=== PATIENT | male | born 1985 | race Caucasian/White ===

== ENCOUNTER 2017-03-15 21:35 | Emergency (ER) | payer SELFPAY ==
[~2017-03-15] VITALS: Ht 195.6 cm; Wt 137.9 kg
[2017-03-15 21:35] VITALS: BP 136/100; PULSE 92; RESP 18; TEMP 98.9; O2SAT 100
[~2017-03-15 21:35] MED LIST: ANTIDEPRESSANT PO; MUSCLE RELAXER PO; NEXI20CA PO; Z.0.NO CURRENT MEDS; [UNRECOGNIZED DRUG - CODE] PO
[2017-03-15] MEDS ORDERED: ZANT150T2 PO (21:56)
[2017-03-15] MEDS ORDERED: CYCL1TAB29 PO (21:57)
--- NOTE | 2017-03-15 22:00 | PD ---
HPI Chief Complaint: Respiratory Symptoms Time Seen by Provider: 21:47 Travel History International Travel<30 days: No Contact w/Intl Traveler<30days: Yes Name of Country Traveled to: doesnt know what country but boss travels internationally Traveled to known affect area: No History of Present Illness HPI 31-year-old male complains of headache, earache, sore throat, persistent cough with bloody sputum, nausea and diarrhea. Patient states that the symptoms started a week ago. Patient noticed some blood in the sputum for the past 3 days. Patient states that headache aching headache diffuse over the head. Patient denies any visual change. Patient denies any neck pain. Patient has anterior chest wall with coughing. Patient denies abdominal pain. Patient denies any dysuria or frequency. Patient feeling hot and cold at home. PFSH Past Medical History Depression: Yes Diminished Hearing: No GERD: Yes Immunizations Current: Yes Social History Alcohol Use: Yes (RARELY) Tobacco Use: No Substance Use: Yes (DAILY MARIJUANA) Allergies-Medications (Allergen,Severity, Reaction): Coded Allergies: No Known Allergies (Unverified , 03/15/17) Reported Meds & Prescriptions Reported Meds & Active Scripts Active Reported Flexeril (Cyclobenzaprine HCl) 10 Mg Tab 10 Mg PO TID Zantac (Ranitidine HCl) 150 Mg Tab 150 Mg PO BID Nexium (Esomeprazole DR) 20 Mg Capdr 20 Mg PO DAILY Review of Systems General / Constitutional: No: Fever Eyes: No: Visual changes HENT: Positive: Headaches, Sore Throat, Earache Cardiovascular: No: Chest Pain or Discomfort Respiratory: Positive: Cough, Hemoptysis, No: Shortness of Breath Gastrointestinal: Positive: Nausea, Diarrhea, No: Abdominal Pain Genitourinary: No: Dysuria Musculoskeletal: No: Pain Skin: No Rash Neurologic: No: Weakness Psychiatric: No: Depression Endocrine: No: Polydipsia Hematologic/Lymphatic: No: Easy Bruising Physical Exam Narrative GENERAL: Well-nourished, well-developed patient. SKIN: Focused skin assessment warm/dry. HEAD: Normocephalic. EYES: No scleral icterus. No injection or drainage. TM: Clear. Throat: Nonerythematous. NECK: Supple, trachea midline. No JVD or lymphadenopathy. No meningismus CARDIOVASCULAR: Regular rate and rhythm without murmurs, gallops, or rubs. RESPIRATORY: Breath sounds equal bilaterally. No accessory muscle use. GASTROINTESTINAL: Abdomen soft, non-tender, nondistended. MUSCULOSKELETAL: No cyanosis, or edema. BACK: Nontender without obvious deformity. No CVA tenderness. Neurologic exam normal. Data Data Last Documented VS Vital Signs Date Time Temp Pulse Resp B/P Pulse Ox O2 Delivery O2 Flow Rate FiO2 03/15/17 21:50 100 Room Air 03/15/17 21:35 98.9 92 18 136/100 Orders Influenzae A/B Antigen (03/15/17 21:54) Chest, Pa & Lat (03/15/17 21:54) MDM Medical Decision Making Medical Screen Exam Complete: Yes Emergency Medical Condition: Yes Interpretation(s) Last Impressions Chest X-Ray 03/15/172153 Signed Impressions: Service Date/Time: Friday, March 15, 2017 21:56 - CONCLUSION: No acute cardiopulmonary disease. Anyi Rico MD 22:36 PM. Influenza AB antigen negative. Differential Diagnosis Differential diagnosis including viral syndrome, otitis media, pharyngitis, bronchitis, pneumonia, gastroenteritis, electrolyte abnormality, dehydration. Narrative Course 31-year-old male with headache, earache, sore throat, coughing with bloody sputum, nausea and diarrhea. Diagnosis Primary Impression: Bronchitis Additional Impression: Viral syndrome Patient Instructions: General Instructions Additional Instructions: Take medications as directed. Tylenol and ibuprofen for fever aching pain. Follow-up with personal physician. Return if persistent problem or worse. Med/Other Pt SpecificInfo: Prescription(s) given Scripts [Phenerg W Codein] No Conflict Check10 Ml PO Q6HR #120 Prov:Kin Houser MD 03/15/17 Azithromycin (Zithromax Z-Ronaldo)250 Mg [id number] Mg PO DIRECTED #1 DSPK 500 MG (2 tabs) day 1, then 1 tab days 2-5. Prov:Kin Houser MD 03/15/17 Disposition: 01 DISCHARGE HOME Condition: Stable Kin Houser MD Mar 15, 2017 22:00
--- NOTE | 2017-03-15 22:20 | RADHPO ---
EXAM DATE/TIME: 03/15/2017 21:56 [facility] COMPARISON: No previous studies available for comparison. INDICATIONS : Cough and chest pain. Patient states he has been coughing up blood for three days. MEDICAL HISTORY : Former smoker. SURGICAL HISTORY : None. ENCOUNTER: Initial ACUITY: 3 days PAIN SCORE: 4/10 LOCATION: Bilateral chest FINDINGS: The lungs are clear without infiltrate, nodule, or mass. There is no appreciable pleural effusion fo r technique. Heart and mediastinum are unremarkable. CONCLUSION: No acute cardiopulmonary disease. Anyi Rico MD on March 15, 2017 at 22:17 Board Certified Radiologist. This report was verified electronically.
[2017-03-15] MEDS ORDERED: [UNRECOGNIZED DRUG - OTHER] PO (22:40)
[2017-03-15] MEDS ORDERED: ZITHTAB PO (22:40)
[2017-03-15 22:44] VITALS: BP 140/94; TEMP 98.8
== END 2017-03-15 22:53 | disposition home or self-care (01) ==
LOC: PHED 21:35
DX: J40 Bronchitis, not specified as acute or chronic (principal); B34.9 Viral infection, unspecified
CPT/HCPCS: 71020; 87804; 99284

== ENCOUNTER 2017-07-07 22:05 | Emergency (ER) | payer SELFPAY ==
[~2017-07-07] VITALS: Ht 195.6 cm; Wt 125.0 kg
[~2017-07-07 22:05] MED LIST changes: -ANTIDEPRESSANT PO; +CYCL1TAB29 PO; -MUSCLE RELAXER PO; -Z.0.NO CURRENT MEDS; +ZANT150T2 PO; +ZITHTAB PO; -[UNRECOGNIZED DRUG - CODE] PO; +[UNRECOGNIZED DRUG - OTHER] PO
[2017-07-07 22:06] VITALS: BP 186/111; PULSE 93; RESP 16; TEMP 98.4; O2SAT 100
--- NOTE | 2017-07-07 22:32 | PD ---
Physical Exam Date Seen by Provider: Jul 07, 2017 Time Seen by Provider: 22:28 Narrative 31 y/o male here for Psychiatric Exam for suicidal ideation. Police told him to come, but was not Wiley Acted. Currently denies suicidal ideation or specific plan. Patient was brought in by a friend so he wouldn't be Wiley Acted. Hx. Colitis. Vital Signs reviewed. Patient is Stable and awaiting Bed Placement. Data Data Last Documented VS Vital Signs Date Time Temp Pulse Resp B/P (MAP) Pulse Ox O2 Delivery O2 Flow Rate FiO2 07/07/17 22:06 98.4 93 16 186/111 (136) 100 MDM Medical Record Reviewed: Yes Supervised Visit with JONAH: Yes Condition: Stable Favio Concepcion Jul 07, 2017 22:32
--- NOTE | 2017-07-07 23:24 | PD ---
HPI Chief Complaint: Psychiatric Symptoms Time Seen by Provider: 23:23 Travel History International Travel<30 days: No Contact w/Intl Traveler<30days: No Traveled to known affect area: No History of Present Illness HPI 31-year-old male reports depressed mood lately as well as his has been cheating on him. He denies any actual plan to hurt himself nor has he history of self-harm or diagnosis of psychiatric disease. He smokes marijuana daily however denies alcohol abuse or drug abuse otherwise. He reports that social support network to be intact. 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 Location neuropsychiatric. Severity moderate. PFSH Past Medical History Depression: Yes Diminished Hearing: No GERD: Yes (Colitis) Immunizations Current: Yes Social History Alcohol Use: Yes (RARELY) Tobacco Use: No Substance Use: Yes (DAILY MARIJUANA) Allergies-Medications (Allergen,Severity, Reaction): Coded Allergies: No Known Allergies (Unverified , 07/07/17) Reported Meds & Prescriptions Reported Meds & Active Scripts Active Paxil (Paroxetine HCl) 10 Mg Tab 10 Mg PO DAILY [Phenerg W Codein] 10 Ml PO Q6HR Zithromax Z-Ronaldo (Azithromycin) 250 Mg Dspk 250 Mg PO DIRECTED 500 MG (2 tabs) day 1, then 1 tab days 2-5. Reported Flexeril (Cyclobenzaprine HCl) 10 Mg Tab 10 Mg PO TID Zantac (Ranitidine HCl) 150 Mg Tab 150 Mg PO BID Nexium (Esomeprazole DR) 20 Mg Capdr 20 Mg PO DAILY Review of Systems Except as stated in HPI: all other systems reviewed are Neg Physical Exam Narrative GENERAL: 31-year-old male well-nourished well-developed pleasant SKIN: Warm and dry. HEAD: Atraumatic. Normocephalic. EYES: Pupils equal and round. No scleral icterus. No injection or drainage. ENT: No nasal bleeding or discharge. Mucous membranes pink and moist. NECK: Trachea midline. No JVD. CARDIOVASCULAR: Regular rate and rhythm. RESPIRATORY: No accessory muscle use. Clear to auscultation. Breath sounds equal bilaterally. GASTROINTESTINAL: Abdomen soft, non-tender, nondistended. Hepatic and splenic margins not palpable. MUSCULOSKELETAL: Extremities without clubbing, cyanosis, or edema. No obvious deformities. NEUROLOGICAL: Awake and alert. No obvious cranial nerve deficits. Motor grossly within normal limits. Five out of 5 muscle strength in the arms and legs. Normal speech. PSYCHIATRIC: Interactive. Normal affect. Reports depressed mood however has no suicidal plan. He has no homicidal ideation. Data Data Last Documented VS Vital Signs Date Time Temp Pulse Resp B/P (MAP) Pulse Ox O2 Delivery O2 Flow Rate FiO2 07/07/17 22:06 98.4 93 16 186/111 (136) 100 Vital signs reviewed Orders Orders Complete Blood Count With Diff (07/07/17 22:32) Comprehensive Metabolic Panel (07/07/17 22:32) Psych Screen (07/07/17 22:32) Drug Screen, Random Urine (07/07/17 22:32) MDM Medical Decision Making Medical Screen Exam Complete: Yes Emergency Medical Condition: Yes Differential Diagnosis Depressed mood, major depression, depression or related to marijuana abuse, adjustment reaction Narrative Course Overall the patient is considered very low probability for self-harm. He would like to leave the ER so he can work tomorrow. He is outside of the black box risk for suicidality secondary to Paxil use and seems amenable to a trial of it for his depressed mood. He has verbalized understanding of return precautions to the ER and I would consider his intent to be sincere and for him to be a reliable patient. Diagnosis Primary Impression: Depressed mood Referrals: Psychiatrist Additional Instructions: You have a choice when it comes to health care, and we are glad that you chose [facility]. Hopefully, we have met your expectations on today's visit. You are welcome to return to [facility] at any time, as we are committed to meeting the health care needs of our community. Med/Other Pt SpecificInfo: Prescription(s) given Scripts Paroxetine (Paxil) 10 Mg Tab 10 MG PO DAILY, #30 TAB 0 Refills Prov: Hunter Rosario MD 07/07/17 Disposition: 01 DISCHARGE HOME Condition: Stable Hunter Rosario MD Jul 07, 2017 23:24
[2017-07-07] MEDS ORDERED: PAXI10TA2 PO (23:26)
[2017-07-09] MEDS ORDERED: PROZ20CA11 PO (15:35)
== END 2017-07-08 00:07 | disposition home or self-care (01) ==
LOC: NEPD 23:51
DX: F32.9 Major depressive disorder, single episode, unspecified (principal); K21.9 Gastro-esophageal reflux disease without esophagitis
CPT/HCPCS: 99283

== ENCOUNTER 2017-07-08 16:01 | Emergency (ER) | payer SELFPAY ==
[~2017-07-08] VITALS: Ht 193 cm; Wt 129.5 kg
[2017-07-08 16:01] VITALS: BP 188/92; PULSE 77; RESP 16; TEMP 98.5; O2SAT 98
[~2017-07-08 16:01] MED LIST changes: +PAXI10TA2 PO
[2017-07-08 16:44] LABS: AUTOMATED NEUTROPHIL # 5.7 TH/MM3 (1.8-7.7); BASOPHIL % 0.4 % (0.0-2.0); EOSINOPHIL # 0.3 TH/MM3 (0-0.4); EOSINOPHIL % 4.1 % (0.0-4.0); HEMATOCRIT 40.8 % (39.0-51.0); HEMO FLAGS DIFF FINAL; LYMPH % 13.6 % (9.0-44.0); LYMPHOCYTE # 1.1 TH/MM3 (1.0-4.8); MEAN CELL VOLUME 90.4 FL (80.0-100.0); MEAN CORPUSCULAR HEMOGLOBIN 30.8 PG (27.0-34.0); NEUT % 72.9 % (16.0-70.0); PLATELET COUNT 261 TH/MM3 (150-450); RED BLOOD COUNT 4.51 MIL/MM3 (4.50-5.90); RED CELL DISTRIBUTION WIDTH 12.8 % (11.6-17.2); WHITE BLOOD COUNT 7.8 TH/MM3 (4.0-11.0)
[2017-07-08 17:07] LABS: ALT (GPT) 27 U/L (12-78); ANION GAP 6 MEQ/L (5-15); AST (GOT) 20 U/L (15-37); BICARBONATE 28.9 MEQ/L (21.0-32.0); BLOOD UREA NITROGEN 12 MG/DL (7-18); CHLORIDE 109 MEQ/L (98-107); GLOMERULAR FILTRATION RATE 74 ML/MIN (>89); POTASSIUM 4.1 MEQ/L (3.5-5.1); SODIUM (NA) 144 MEQ/L (136-145)
[2017-07-08 17:09] LABS: ALKALINE PHOSPHATASE 68 U/L (45-117); TOTAL BILIRUBIN ADULT 0.9 MG/DL (0.2-1.0)
--- NOTE | 2017-07-08 18:01 | PD ---
HPI Chief Complaint: Suicide Ideation/Attempt Time Seen by Provider: 17:31 Travel History International Travel<30 days: No Contact w/Intl Traveler<30days: No Traveled to known affect area: No History of Present Illness HPI 31-year-old male presents to emergency Department voluntarily for psychiatric evaluation for depression and suicidal thoughts. He says his home situation is overwhelmingly horrible and it is causing him to be depressed and wants to commit suicide. He does not have a plan. He does state that if he had a gun in the house he probably wouldn't be alive today, therefore he does not keep a gun in the house. Reports hearing voices and seeing things out of the side of his eyes. Reports history of depression and suicidal thoughts. History of suicidal attempt when he was younger. Denies homicidal ideations. Admits to recently using cocaine. Reports marijuana use. Denies tobacco use. Has no emergent medical complaints at this time. No known allergies. No other modifying factors or associated signs and symptoms. PFSH Past Medical History Depression: Yes Diminished Hearing: No Gastrointestinal Disorders: Yes (COLITS) GERD: Yes (Colitis) Immunizations Current: Yes Social History Alcohol Use: Yes (RARELY) Tobacco Use: No Substance Use: Yes (DAILY MARIJUANA) Allergies-Medications (Allergen,Severity, Reaction): Coded Allergies: No Known Allergies (Unverified , 07/08/17) Reported Meds & Prescriptions Reported Meds & Active Scripts Active Paxil (Paroxetine HCl) 10 Mg Tab 10 Mg PO DAILY [Phenerg W Codein] 10 Ml PO Q6HR Zithromax Z-Ronaldo (Azithromycin) 250 Mg Dspk 250 Mg PO DIRECTED 500 MG (2 tabs) day 1, then 1 tab days 2-5. Reported Flexeril (Cyclobenzaprine HCl) 10 Mg Tab 10 Mg PO TID Zantac (Ranitidine HCl) 150 Mg Tab 150 Mg PO BID Nexium (Esomeprazole DR) 20 Mg Capdr 20 Mg PO DAILY Review of Systems Except as stated in HPI: all other systems reviewed are Neg Physical Exam Narrative GENERAL: Well-nourished, well-developed male patient, in no acute distress SKIN: Warm and dry. HEAD: Atraumatic. Normocephalic. EYES: Pupils equal and round. ENT: Mucosa pink and moist. NECK: Supple. Trachea midline. CARDIOVASCULAR: Regular rate and rhythm. No murmur appreciated. RESPIRATORY: No accessory muscle use. Clear to auscultation. Breath sounds equal bilaterally. GASTROINTESTINAL: Abdomen soft, non-tender, nondistended. Hepatic and splenic margins not palpable. Bowel sounds are active 4 quadrants. MUSCULOSKELETAL: No obvious deformities. No clubbing. No cyanosis. No edema. NEUROLOGICAL: Awake and alert. Oriented 3. No obvious cranial nerve deficits. Motor grossly within normal limits. Normal speech. Moves all extremities. 5/5 strength to all extremities. PSYCHIATRIC: No delusional thought processes. No hallucinations. Data Data Last Documented VS Vital Signs Date Time Temp Pulse Resp B/P (MAP) Pulse Ox O2 Delivery O2 Flow Rate FiO2 07/08/17 16:01 98.5 77 16 188/92 (124) 98 Room Air Orders Orders Complete Blood Count With Diff (07/08/17 16:09) Comprehensive Metabolic Panel (07/08/17 16:09) Psych Screen (07/08/17 16:09) Drug Screen, Random Urine (07/08/17 16:09) Labs Laboratory Tests Test 07/08/17 16:17 White Blood Count 7.8 TH/MM3 Red Blood Count 4.51 MIL/MM3 Hemoglobin 13.9 GM/DL Hematocrit 40.8 % Mean Corpuscular Volume 90.4 FL Mean Corpuscular Hemoglobin 30.8 PG Mean Corpuscular Hemoglobin Concent 34.0 % Red Cell Distribution Width 12.8 % Platelet Count 261 TH/MM3 Mean Platelet Volume 8.5 FL Neutrophils (%) (Auto) 72.9 % Lymphocytes (%) (Auto) 13.6 % Monocytes (%) (Auto) 9.0 % Eosinophils (%) (Auto) 4.1 % Basophils (%) (Auto) 0.4 % Neutrophils # (Auto) 5.7 TH/MM3 Lymphocytes # (Auto) 1.1 TH/MM3 Monocytes # (Auto) 0.7 TH/MM3 Eosinophils # (Auto) 0.3 TH/MM3 Basophils # (Auto) 0.0 TH/MM3 CBC Comment DIFF FINAL Differential Comment Blood Urea Nitrogen 12 MG/DL Creatinine 1.16 MG/DL Random Glucose 95 MG/DL Total Protein 7.1 GM/DL Albumin 3.9 GM/DL Calcium Level 8.7 MG/DL Alkaline Phosphatase 68 U/L Aspartate Amino Transf (AST/SGOT) 20 U/L Alanine Aminotransferase (ALT/SGPT) 27 U/L Total Bilirubin 0.9 MG/DL Sodium Level 144 MEQ/L Potassium Level 4.1 MEQ/L Chloride Level 109 MEQ/L Carbon Dioxide Level 28.9 MEQ/L Anion Gap 6 MEQ/L Estimat Glomerular Filtration Rate 74 ML/MIN Urine Opiates Screen NEG Urine Barbiturates Screen NEG Urine Amphetamines Screen NEG Urine Benzodiazepines Screen NEG Urine Cocaine Screen POS Urine Cannabinoids Screen POS MDM Medical Decision Making Medical Screen Exam Complete: Yes Emergency Medical Condition: Yes Medical Record Reviewed: Yes Differential Diagnosis Suicidal ideation, depression, medical clearance for psych evaluation Narrative Course Patient presents voluntarily for psych evaluation. Physical examination and vital signs are essentially unremarkable. Patient has no medical complaints to report. Psych screen has been ordered. If the laboratory results are unremarkable, the patient will be medically cleared for psychiatric evaluation and disposition. Diagnosis Primary Impression: Medical clearance for psychiatric admission Condition: Stable Whitney Rivera Jul 08, 2017 18:01
[2017-07-08 19:00] VITALS: BP 137/63; PULSE 81; RESP 18; O2SAT 95
[2017-07-08 22:00] VITALS: BP 162/96; PULSE 73; RESP 16; O2SAT 100
[2017-07-09 02:10] VITALS: BP 176/92; PULSE 65; RESP 18; O2SAT 99
[2017-07-09 06:23] VITALS: BP 147/87; PULSE 74; RESP 19; O2SAT 99
[2017-07-09 14:26] VITALS: BP 136/58; PULSE 67; RESP 16; O2SAT 98
[2017-07-09] MEDS ORDERED: PROZ20CA11 PO (15:35)
--- NOTE | 2017-07-09 15:43 | PD ---
History of Present Illness Chief Complaint: Suicide Ideation/Attempt Time Seen by Provider: 15:30 Travel History International Travel<30 Days: No Contact w/Intl Traveler<30days: No Known affected area: No Legal Status Legal Status: Wiley Act Wiley Act Signed By: DR. B[facility] History of Present Illness: This is a 31-year-old male seen under a Wiley act initiated by one of our emergency department physicians for suicidal ideation. Patient reports symptoms of depression and anxiety since he discovered his is cheating on him. 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 He is willing to be seen on an outpatient basis for treatment. He is willing to take antidepressant medication and this physician recommended Prozac, also providing informed consent. The patient is stating he has no suicidal or homicidal ideation, plan or intent at this time. He is verbally nestor for safety. His cognition is intact and he has no psychosis. He is competent therefore to make this verbal contract. PFSH Past Medical History Depression: Yes Diminished Hearing: No Gastrointestinal Disorders: Yes (COLITS) GERD: Yes (Colitis) Immunizations Current: Yes Psychiatric History Psychiatric History Hx Psychiatric Treatment: HX: DEPRESSION MOTHER HAS A HISTORY OF SCHIZOPHRENIA. History of Inpatient Treatment: Yes Guns or firearms in home: No Social History Hx Alcohol Use: Yes (RARELY) Hx Tobacco Use: No Hx Substance Use: Yes Substance Use Type: Marijuana, Cocaine Hx of Substance Use Treatment: No Allergies-Medications (Allergen,Severity, Reaction): Coded Allergies: No Known Allergies (Unverified , 07/08/17) Reported Meds & Prescriptions Reported Meds & Active Scripts Active Prozac (Fluoxetine HCl) 20 Mg Cap 20 Mg PO DAILY Paxil (Paroxetine HCl) 10 Mg Tab 10 Mg PO DAILY [Phenerg W Codein] 10 Ml PO Q6HR Zithromax Z-Ronaldo (Azithromycin) 250 Mg Dspk 250 Mg PO DIRECTED 500 MG (2 tabs) day 1, then 1 tab days 2-5. Reported Flexeril (Cyclobenzaprine HCl) 10 Mg Tab 10 Mg PO TID Zantac (Ranitidine HCl) 150 Mg Tab 150 Mg PO BID Nexium (Esomeprazole DR) 20 Mg Capdr 20 Mg PO DAILY Review of Systems Except as stated in HPI: all other systems reviewed are Neg Exam Alert: Yes [place]: Person, Place, Date, Situation Mood: Anxious, Calm Affect: Appropriate Speech: Clear, Logical Eye Contact: Normal Memory Intact: Immediate, Recent, Remote Insight/Judgement Adequate MDM Medical Decision Making Medical Record Reviewed: Yes Assessment/Plan Patient's medical record was reviewed and case was discussed with the patient's nurse, Maria Elena. Patient is verbally nestor for safety and denies any suicidal or homicidal ideation, plan or intent at this time. He is willing to accept treatment in the form of medication (Prozac) and outpatient follow up. He would like to return to work. This physician feels he does not qualify for Wiley act or involuntary psychiatric hospitalization. Orders Orders Complete Blood Count With Diff (07/08/17 16:09) Comprehensive Metabolic Panel (07/08/17 16:09) Psych Screen (07/08/17 16:09) Drug Screen, Random Urine (07/08/17 16:09) Diet Regular Basic (07/09/17 Breakfast) Diet Regular Basic (07/09/17 Lunch) Diet Regular Basic (07/09/17 Dinner) Results Vital Signs Date Time Temp Pulse Resp B/P (MAP) Pulse Ox O2 Delivery O2 Flow Rate FiO2 07/09/17 14:26 67 16 136/58 (84) 98 Room Air 07/09/17 06:23 74 19 147/87 (107) 99 Room Air 07/09/17 02:10 65 18 176/92 (120) 99 Room Air 07/08/17 22:00 73 16 162/96 (118) 100 Room Air 07/08/17 19:00 81 18 137/63 (87) 95 Room Air 07/08/17 16:01 98.5 77 16 188/92 (124) 98 Room Air Laboratory Tests Test 07/08/17 16:17 White Blood Count 7.8 Red Blood Count 4.51 Hemoglobin 13.9 Hematocrit 40.8 Mean Corpuscular Volume 90.4 Mean Corpuscular Hemoglobin 30.8 Mean Corpuscular Hemoglobin Concent 34.0 Red Cell Distribution Width 12.8 Platelet Count 261 Mean Platelet Volume 8.5 Neutrophils (%) (Auto) 72.9 Lymphocytes (%) (Auto) 13.6 Monocytes (%) (Auto) 9.0 Eosinophils (%) (Auto) 4.1 Basophils (%) (Auto) 0.4 Neutrophils # (Auto) 5.7 Lymphocytes # (Auto) 1.1 Monocytes # (Auto) 0.7 Eosinophils # (Auto) 0.3 Basophils # (Auto) 0.0 CBC Comment DIFF FINAL Differential Comment Blood Urea Nitrogen 12 Creatinine 1.16 Random Glucose 95 Total Protein 7.1 Albumin 3.9 Calcium Level 8.7 Alkaline Phosphatase 68 Aspartate Amino Transf (AST/SGOT) 20 Alanine Aminotransferase (ALT/SGPT) 27 Total Bilirubin 0.9 Sodium Level 144 Potassium Level 4.1 Chloride Level 109 Carbon Dioxide Level 28.9 Anion Gap 6 Estimat Glomerular Filtration Rate 74 Urine Opiates Screen NEG Urine Barbiturates Screen NEG Urine Amphetamines Screen NEG Urine Benzodiazepines Screen NEG Urine Cocaine Screen POS Urine Cannabinoids Screen POS Diagnosis Primary Impression: Adjustment disorder with mixed disturbance of emotions and conduct Prescriptions Fluoxetine (Prozac) 20 Mg Cap 20 MG PO DAILY, #30 CAP 1 Refill Prov: Juventino Combs MD 07/09/17 Condition: Stable Juventino Combs MD Jul 09, 2017 15:43
[2017-07-09 15:53] VITALS: BP 136/58; TEMP 98
== END 2017-07-09 15:56 | disposition home or self-care (01) ==
LOC: NEPJ 16:01
DX: F32.9 Major depressive disorder, single episode, unspecified (principal); F43.25 Adjustment disorder with mixed disturbance of emotions and conduct
CPT/HCPCS: 80053; 80307; 85025; 99284

== ENCOUNTER 2017-10-05 15:38 | Emergency (ER) | payer OTHER ==
[~2017-10-05] VITALS: Ht 193 cm; Wt 125.0 kg
[~2017-10-05 15:38] MED LIST changes: +CYCL10TA PO; -CYCL1TAB29 PO; -PAXI10TA2 PO; +PAXI10TA8 PO; +PROZ20CA11 PO
[2017-10-05 15:40] VITALS: BP 167/97; PULSE 77; RESP 16; TEMP 98.8; O2SAT 100
[2017-10-05 17:32] VITALS: BP 136/68; PULSE 77; RESP 18; TEMP 98.2; O2SAT 100
--- NOTE | 2017-10-05 17:45 | PD ---
HPI Chief Complaint: Psychiatric Symptoms Time Seen by Provider: 17:43 Travel History International Travel<30 days: No Contact w/Intl Traveler<30days: No Traveled to known affect area: No History of Present Illness HPI This is a 31-year-old male who presents voluntarily requesting psychiatric evaluation. He reports that for some time now he has been having auditory hallucinations. He feels like all the time he can hear voices commenting on his life and on things that he is doing. He reports that it is making him feel depressed and he has been having passive suicidal thoughts. He reports that he had his take his gun away from him. He does not see a psychiatrist in regards to the symptoms. He denies any drug or alcohol use. He denies any homicidal ideation. He has no other complaints at this time. [facility] [place] Past Medical History Depression: Yes Diminished Hearing: No Gastrointestinal Disorders: Yes (COLITS) GERD: Yes (Colitis) Immunizations Current: Yes Social History Alcohol Use: Yes (RARELY) Tobacco Use: No Substance Use: Yes Allergies-Medications (Allergen,Severity, Reaction): Coded Allergies: No Known Allergies (Unverified Adverse Reaction, Unknown, 10/05/17) Reported Meds & Prescriptions Reported Meds & Active Scripts Active Prozac (Fluoxetine HCl) 20 Mg Cap 20 Mg PO DAILY Paxil (Paroxetine HCl) 10 Mg Tab 10 Mg PO DAILY [Phenerg W Codein] 10 Ml PO Q6HR Zithromax Z-Ronaldo (Azithromycin) 250 Mg Dspk 250 Mg PO DIRECTED 500 MG (2 tabs) day 1, then 1 tab days 2-5. Reported Flexeril (Cyclobenzaprine HCl) 10 Mg Tab 10 Mg PO TID Zantac (Ranitidine HCl) 150 Mg Tab 150 Mg PO BID Nexium (Esomeprazole DR) 20 Mg Capdr 20 Mg PO DAILY Review of Systems Except as stated in HPI: all other systems reviewed are Neg Physical Exam Narrative GENERAL: Well-nourished male in no acute distress SKIN: Warm and dry. HEAD: Atraumatic. Normocephalic. EYES: Pupils equal and round. No scleral icterus. No injection or drainage. ENT: No nasal bleeding or discharge. Mucous membranes pink and moist. NECK: Trachea midline. No JVD. CARDIOVASCULAR: Regular rate and rhythm. No murmur appreciated. RESPIRATORY: No accessory muscle use. Clear to auscultation. Breath sounds equal bilaterally. GASTROINTESTINAL: Abdomen soft, non-tender, nondistended. Hepatic and splenic margins not palpable. MUSCULOSKELETAL: No obvious deformities. No clubbing. No cyanosis. No edema. NEUROLOGICAL: Awake and alert. No obvious cranial nerve deficits. Motor grossly within normal limits. Normal speech. PSYCHIATRIC: Appropriate mood and affect; insight and judgment normal. Data Data Last Documented VS Vital Signs Date Time Temp Pulse Resp B/P (MAP) Pulse Ox O2 Delivery O2 Flow Rate FiO2 10/05/17 17:32 98.2 77 18 136/68 (90) 100 Room Air Orders Orders Diet Regular Basic (10/05/17 Dinner) Complete Blood Count With Diff (10/05/17 17:10) Comprehensive Metabolic Panel (10/05/17 17:10) Psych Screen (10/05/17 17:10) Drug Screen, Random Urine (10/05/17 17:10) Alcohol (Ethanol) (10/05/17 17:10) Labs Laboratory Tests Test 10/05/17 17:00 White Blood Count 7.3 TH/MM3 Red Blood Count 4.67 MIL/MM3 Hemoglobin 14.8 GM/DL Hematocrit 42.8 % Mean Corpuscular Volume 91.6 FL Mean Corpuscular Hemoglobin 31.6 PG Mean Corpuscular Hemoglobin Concent 34.5 % Red Cell Distribution Width 12.6 % Platelet Count 282 TH/MM3 Mean Platelet Volume 9.1 FL Neutrophils (%) (Auto) 68.7 % Lymphocytes (%) (Auto) 16.2 % Monocytes (%) (Auto) 9.6 % Eosinophils (%) (Auto) 4.8 % Basophils (%) (Auto) 0.7 % Neutrophils # (Auto) 5.0 TH/MM3 Lymphocytes # (Auto) 1.2 TH/MM3 Monocytes # (Auto) 0.7 TH/MM3 Eosinophils # (Auto) 0.4 TH/MM3 Basophils # (Auto) 0.0 TH/MM3 CBC Comment DIFF FINAL Differential Comment Blood Urea Nitrogen 13 MG/DL Creatinine 1.01 MG/DL Random Glucose 94 MG/DL Total Protein 6.9 GM/DL Albumin 3.7 GM/DL Calcium Level 9.0 MG/DL Alkaline Phosphatase 66 U/L Aspartate Amino Transf (AST/SGOT) 23 U/L Alanine Aminotransferase (ALT/SGPT) 30 U/L Total Bilirubin 0.3 MG/DL Sodium Level 142 MEQ/L Potassium Level 3.8 MEQ/L Chloride Level 106 MEQ/L Carbon Dioxide Level 30.3 MEQ/L Anion Gap 6 MEQ/L Estimat Glomerular Filtration Rate 87 ML/MIN Urine Opiates Screen NEG Urine Barbiturates Screen NEG Urine Amphetamines Screen NEG Urine Benzodiazepines Screen NEG Urine Cocaine Screen NEG Urine Cannabinoids Screen POS Ethyl Alcohol Level LESS THAN 3 MG/DL MDM Medical Decision Making Medical Screen Exam Complete: Yes Emergency Medical Condition: Yes Medical Record Reviewed: Yes Interpretation(s) Drug screen positive for cannabinoids, lab work otherwise unremarkable. Differential Diagnosis Schizophrenia, suicidal ideation, major depressive disorder, depressive disorder not otherwise specified, acute psychosis, schizoaffective disorder, substance induced mood disorder Narrative Course 31-year-old male presents for evaluation of auditory hallucinations, depression. Mental health screening discussed with the patient. Psychiatric screen ordered. The patient is medically cleared for psychiatric disposition. Diagnosis Primary Impression: Auditory hallucinations Kyle Foreman Oct 05, 2017 17:45
[2017-10-05 17:56] LABS: BASOPHIL % 0.7 % (0.0-2.0); EOSINOPHIL # 0.4 TH/MM3 (0-0.4); EOSINOPHIL % 4.8 % (0.0-4.0); HEMATOCRIT 42.8 % (39.0-51.0); HEMO FLAGS DIFF FINAL; LYMPH % 16.2 % (9.0-44.0); LYMPHOCYTE # 1.2 TH/MM3 (1.0-4.8); MEAN CELL VOLUME 91.6 FL (80.0-100.0); MEAN CORPUSCULAR HEMOGLOBIN 31.6 PG (27.0-34.0); MEAN CORPUSCULAR HGB CONC 34.5 % (32.0-36.0); MONO % 9.6 % (0.0-8.0); NEUT % 68.7 % (16.0-70.0); PLATELET COUNT 282 TH/MM3 (150-450); RED BLOOD COUNT 4.67 MIL/MM3 (4.50-5.90); RED CELL DISTRIBUTION WIDTH 12.6 % (11.6-17.2); WHITE BLOOD COUNT 7.3 TH/MM3 (4.0-11.0)
[2017-10-05 18:03] LABS: ALT (GPT) 30 U/L (12-78); ANION GAP 6 MEQ/L (5-15); AST (GOT) 23 U/L (15-37); BICARBONATE 30.3 MEQ/L (21.0-32.0); BLOOD UREA NITROGEN 13 MG/DL (7-18); CHLORIDE 106 MEQ/L (98-107); GLOMERULAR FILTRATION RATE 87 ML/MIN (>89); POTASSIUM 3.8 MEQ/L (3.5-5.1); SODIUM (NA) 142 MEQ/L (136-145)
[2017-10-05 18:04] LABS: ALCOHOL LESS THAN 3 MG/DL (0-5)
[2017-10-05 18:05] LABS: ALKALINE PHOSPHATASE 66 U/L (45-117); TOTAL BILIRUBIN ADULT 0.3 MG/DL (0.2-1.0)
[2017-10-05 23:22] VITALS: BP 132/64; PULSE 57; RESP 18
[2017-10-06 06:02] VITALS: BP 115/80; PULSE 55; RESP 18; O2SAT 99
[2017-10-06 09:47] VITALS: BP 133/76; PULSE 72; RESP 18; TEMP 97.8; O2SAT 99
--- NOTE | 2017-10-06 10:14 | PD ---
Physical Exam Date Seen by Provider: Oct 06, 2017 Time Seen by Provider: 10:12 Narrative 31-year-old male previously medically cleared for psychiatric evaluation. Patient was a voluntary psychiatric eval. patient is medically stable. Patient is to be discharged from here and going directly to [facility] for further treatment per psychiatric staff. Data Data Last Documented VS Vital Signs Date Time Temp Pulse Resp B/P (MAP) Pulse Ox O2 Delivery O2 Flow Rate FiO2 10/06/17 09:47 97.8 72 18 133/76 (95) 99 Room Air Orders Orders Diet Regular Basic (10/05/17 Dinner) Complete Blood Count With Diff (10/05/17 17:10) Comprehensive Metabolic Panel (10/05/17 17:10) Psych Screen (10/05/17 17:10) Drug Screen, Random Urine (10/05/17 17:10) Alcohol (Ethanol) (10/05/17 17:10) Diet Regular Basic (10/06/17 Breakfast) Labs Laboratory Tests Test 10/05/17 17:00 White Blood Count 7.3 TH/MM3 Red Blood Count 4.67 MIL/MM3 Hemoglobin 14.8 GM/DL Hematocrit 42.8 % Mean Corpuscular Volume 91.6 FL Mean Corpuscular Hemoglobin 31.6 PG Mean Corpuscular Hemoglobin Concent 34.5 % Red Cell Distribution Width 12.6 % Platelet Count 282 TH/MM3 Mean Platelet Volume 9.1 FL Neutrophils (%) (Auto) 68.7 % Lymphocytes (%) (Auto) 16.2 % Monocytes (%) (Auto) 9.6 % Eosinophils (%) (Auto) 4.8 % Basophils (%) (Auto) 0.7 % Neutrophils # (Auto) 5.0 TH/MM3 Lymphocytes # (Auto) 1.2 TH/MM3 Monocytes # (Auto) 0.7 TH/MM3 Eosinophils # (Auto) 0.4 TH/MM3 Basophils # (Auto) 0.0 TH/MM3 CBC Comment DIFF FINAL Differential Comment Blood Urea Nitrogen 13 MG/DL Creatinine 1.01 MG/DL Random Glucose 94 MG/DL Total Protein 6.9 GM/DL Albumin 3.7 GM/DL Calcium Level 9.0 MG/DL Alkaline Phosphatase 66 U/L Aspartate Amino Transf (AST/SGOT) 23 U/L Alanine Aminotransferase (ALT/SGPT) 30 U/L Total Bilirubin 0.3 MG/DL Sodium Level 142 MEQ/L Potassium Level 3.8 MEQ/L Chloride Level 106 MEQ/L Carbon Dioxide Level 30.3 MEQ/L Anion Gap 6 MEQ/L Estimat Glomerular Filtration Rate 87 ML/MIN Urine Opiates Screen NEG Urine Barbiturates Screen NEG Urine Amphetamines Screen NEG Urine Benzodiazepines Screen NEG Urine Cocaine Screen NEG Urine Cannabinoids Screen POS Ethyl Alcohol Level LESS THAN 3 MG/DL MDM Medical Record Reviewed: Yes Supervised Visit with JONAH: Yes Narrative Course 31-year-old male previously medically cleared for psychiatric evaluation. Patient was a voluntary psychiatric eval. patient is medically stable. Patient is to be discharged from here and going directly to [facility] for further treatment per psychiatric staff. Diagnosis Primary Impression: Auditory hallucinations Disposition: 65 DISC TO PSYCH CARE FACILITY Condition: Stable Favio Concepcion Oct 06, 2017 10:14
--- NOTE | 2017-10-06 10:17 | PD ---
History of Present Illness Chief Complaint: Psychiatric Symptoms Time Seen by Provider: 09:30 Travel History International Travel<30 Days: No Contact w/Intl Traveler<30days: No Known affected area: No Legal Status Legal Status: Voluntary History of Present Illness: 31-year-old male presents with complaints of pain and suicidality. Patient was interviewed at bedside with medical student and nurse Abebe. At this time, the patient is not complaining of suicidal or homicidal ideation, plan or intent. In fact, he is asking to leave and wants to use the telephone. He does not feel satisfied with the treatment he received on the physical medicine side of the emergency department. He was provided prescriptions of ibuprofen and Robaxin for his complaints of pain. The patient appears to be seeking narcotics and is noted to have a positive toxicology screen with multiple drugs , including cocaine and amphetamines. Patient's cognition is intact and he shows no significant objective clinical evidence of psychotic symptoms or a psychiatric disorder. PFSH Past Medical History Depression: Yes Diminished Hearing: No Gastrointestinal Disorders: Yes (COLITS) GERD: Yes (Colitis) Immunizations Current: Yes Psychiatric History Psychiatric History Hx Psychiatric Treatment: yes History of Inpatient Treatment: Yes Guns or firearms in home: No Social History Hx Alcohol Use: Yes (RARELY) Hx Tobacco Use: No Hx Substance Use: No (Denies) Substance Use Type: Marijuana Hx of Substance Use Treatment: No Allergies-Medications (Allergen,Severity, Reaction): Coded Allergies: No Known Allergies (Unverified Adverse Reaction, Unknown, 10/05/17) Reported Meds & Prescriptions Reported Meds & Active Scripts Active Prozac (Fluoxetine HCl) 20 Mg Cap 20 Mg PO DAILY Paxil (Paroxetine HCl) 10 Mg Tab 10 Mg PO DAILY [Phenerg W Codein] 10 Ml PO Q6HR Zithromax Z-Ronaldo (Azithromycin) 250 Mg Dspk 250 Mg PO DIRECTED 500 MG (2 tabs) day 1, then 1 tab days 2-5. Reported Flexeril (Cyclobenzaprine HCl) 10 Mg Tab 10 Mg PO TID Zantac (Ranitidine HCl) 150 Mg Tab 150 Mg PO BID Nexium (Esomeprazole DR) 20 Mg Capdr 20 Mg PO DAILY Review of Systems Musculoskeletal: COMPLAINS OF: Muscle aches, Back pain Except as stated in HPI: all other systems reviewed are Neg Mental Status Examination Appearance: Appropriate Consciousness: Alert Orientation: x4 Motor Activity: Normal gait Speech: Unremarkable Language: Adequate Fund of Knowledge: Adequate Attention and Concentration: Adequate Memory: Unremarkable Mood: Appropriate Affect: Appropriate Thought Process & Associations: Intact Thought Content: Appropriate Hallucination Type: None Delusion Type: None Suicidal Ideation: No Suicidal Plan: No Suicidal Intention: No Homicidal Ideation: No Homicidal Plan: No Homicidal Intention: No Insight: Adequate Judgment: Adequate MDM Medical Decision Making Medical Record Reviewed: Yes Assessment/Plan 31-year-old male complaining of pain and he is drug seeking. He has a history of recent use of amphetamines and cocaine leading to positive toxicology screen. He was interviewed at bedside and wants to use the phone to leave. He apparently lives with his aunt in the [facility]. No psychotic symptoms and cognition is intact. This physician does not feel we have something to offer the patient due to his substance abuse history. Finally, this physician is aware the patient may act out because he is not getting what he wants, but this is an unpredictable and unavoidable risk. Orders Orders Diet Regular Basic (10/05/17 Dinner) Complete Blood Count With Diff (10/05/17 17:10) Comprehensive Metabolic Panel (10/05/17 17:10) Psych Screen (10/05/17 17:10) Drug Screen, Random Urine (10/05/17 17:10) Alcohol (Ethanol) (10/05/17 17:10) Diet Regular Basic (10/06/17 Breakfast) Ed Discharge Order (10/06/17 10:15) Results Vital Signs Date Time Temp Pulse Resp B/P (MAP) Pulse Ox O2 Delivery O2 Flow Rate FiO2 10/06/17 09:47 97.8 72 18 133/76 (95) 99 Room Air 10/06/17 06:02 55 18 115/80 (92) 99 Room Air 10/05/17 23:22 57 18 132/64 (86) 10/05/17 17:32 98.2 77 18 136/68 (90) 100 Room Air 10/05/17 15:40 98.8 77 16 167/97 (120) 100 Room Air Laboratory Tests Test 10/05/17 17:00 White Blood Count 7.3 Red Blood Count 4.67 Hemoglobin 14.8 Hematocrit 42.8 Mean Corpuscular Volume 91.6 Mean Corpuscular Hemoglobin 31.6 Mean Corpuscular Hemoglobin Concent 34.5 Red Cell Distribution Width 12.6 Platelet Count 282 Mean Platelet Volume 9.1 Neutrophils (%) (Auto) 68.7 Lymphocytes (%) (Auto) 16.2 Monocytes (%) (Auto) 9.6 Eosinophils (%) (Auto) 4.8 Basophils (%) (Auto) 0.7 Neutrophils # (Auto) 5.0 Lymphocytes # (Auto) 1.2 Monocytes # (Auto) 0.7 Eosinophils # (Auto) 0.4 Basophils # (Auto) 0.0 CBC Comment DIFF FINAL Differential Comment Blood Urea Nitrogen 13 Creatinine 1.01 Random Glucose 94 Total Protein 6.9 Albumin 3.7 Calcium Level 9.0 Alkaline Phosphatase 66 Aspartate Amino Transf (AST/SGOT) 23 Alanine Aminotransferase (ALT/SGPT) 30 Total Bilirubin 0.3 Sodium Level 142 Potassium Level 3.8 Chloride Level 106 Carbon Dioxide Level 30.3 Anion Gap 6 Estimat Glomerular Filtration Rate 87 Urine Opiates Screen NEG Urine Barbiturates Screen NEG Urine Amphetamines Screen NEG Urine Benzodiazepines Screen NEG Urine Cocaine Screen NEG Urine Cannabinoids Screen POS Ethyl Alcohol Level LESS THAN 3 Diagnosis Primary Impression: Cocaine abuse Disposition: 65 DISC TO PSYCH CARE FACILITY Condition: Stable Juventino Combs MD Oct 06, 2017 10:17
[2017-10-06 10:19] VITALS: BP 133/76; PULSE 72; RESP 18; O2SAT 99
== END 2017-10-06 12:46 ==
LOC: NEPJ 15:38
DX: F14.10 Cocaine abuse, uncomplicated (principal); R44.0 Auditory hallucinations; K21.9 Gastro-esophageal reflux disease without esophagitis; F32.9 Major depressive disorder, single episode, unspecified; Z79.899 Other long term (current) drug therapy
CPT/HCPCS: 80053; 80307; 85025; 99284